=== PATIENT | male | born 1965 | race Caucasian/White ===

== ENCOUNTER 2023-05-11 01:20 | Inpatient (IN) | payer MEDICAID ==
[~2023-05-11] VITALS: Ht 177.8 cm; Wt 100.0 kg
[2023-05-11 02:46] LABS: BASOPHILS # (AUTO) 0.1 X10'3 (0-0.2); EOSINOPHILS # (AUTO) 0.2 X10'3 (0-0.9); EOSINOPHILS % (AUTO) 3.4 % (0-6); HEMATOCRIT 52.3 % (42.0-52.0); HEMOGLOBIN 17.7 g/dl (14.0-17.9); LYMPHOCYTES # (AUTO) 1.8 X10'3 (1.1-4.8); LYMPHOCYTES % (AUTO) 30.4 % (21-51); MEAN CORPUSCULAR HEMOGLOBIN 27.2 PG (27.0-31.0); MEAN CORPUSCULAR HGB CONC 33.8 g/dL (33.0-36.5); MEAN CORPUSCULAR VOLUME 80.5 FL (78-98); MEAN PLATELET VOLUME 8.8 FL (7.4-10.4); MONOCYTES # (AUTO) 0.6 X10'3 (0-0.9); MONOCYTES % (AUTO) 9.8 % (2-12); NEUTROPHILS # (AUTO) 3.3 X10'3 (1.8-7.7); NEUTROPHILS % (AUTO) 55.4 % (42-75); PLATELET COUNT 265 X10'3 (140-440); RED CELL DISTRIBUTION WIDTH 13.5 % (11.5-14.5)
[2023-05-11 03:19] LABS: ALANINE AMINOTRANSFERASE 29 U/L (12-78); ALBUMIN 3.5 G/DL (3.4-5.0); ALKALINE PHOSPHATASE 162 IU/L (46-116); ANION GAP 9 (8-16); ASPARTATE AMINO TRANSFERASE 20 U/L (10-37); BILIRUBIN,TOTAL 0.7 MG/DL (0.1-1.0); BLOOD UREA NITROGEN 22 MG/DL (7-18); BUN/CREATININE RATIO 18.2 (10.0-20.0); C-REACTIVE PROTEIN 0.11 MG/DL (0.0-0.5); CALCIUM 8.6 MG/DL (8.5-10.1); CHLORIDE 101 MMOL/L (99-107); CREATININE 1.21 MG/DL (0.60-1.10); GLUCOSE 364 MG/DL (70-104); SODIUM 140 MMOL/L (135-145); TOTAL CARBON DIOXIDE 30.5 MMOL/L (24-32); TOTAL PROTEIN 6.9 G/DL (6.4-8.2); eCRCL 70 ML/MIN; eGFR 62 ML/MIN
[2023-05-11] MEDS: morphine 4 MG/ML inj SYRINge IV ONE (03:23)
[2023-05-11] MEDS: ondansetron/PF 4mg/2ml inj IV ONE (03:23)
[2023-05-11] MEDS: normal saline 1000ml 1,000 ML IV ONE (03:23)
[2023-05-11] MEDS: cefepime 2g/NS 100ml ADVANTAGE 100 ML IV ONE (03:32)
[2023-05-11] MEDS: VANCOMYCIN 1,500MG inj. 1,500 MG in normal saline 500ml IV soln 300 ML IV SCH (04:43)
[2023-05-11] MEDS ORDERED: HYDROcodone/acetaminophen 5mg/325mg tablet PO PRN (05:30)
[2023-05-11] MEDS ORDERED: potassium Cl 20 mEq SR tablet PO PRN ×2 (05:30)
[2023-05-11] MEDS: insulin Lispro (HumaLOG) vial - multi-dose SQ ONE (05:30)
[2023-05-11] MEDS: MESSAGE TO PHARMACY PO ONE (05:30)
[2023-05-11] MEDS ORDERED: magnesium 2GM in 50ml NS 50 ML IV PRN (05:30)
[2023-05-11] MEDS ORDERED: mag hydrox/Alum hydrox/simeth 30ml oral suspension PO PRN (05:30)
[2023-05-11] MEDS ORDERED: glucagon, human recombinant 1mg kit SUBCUT PRN (05:30)
[2023-05-11] MEDS ORDERED: ondansetron/PF 4mg/2ml inj IV PRN (05:30)
[2023-05-11] MEDS ORDERED: magnesium Cl slow-release 64mg tablet PO PRN (05:30)
[2023-05-11] MEDS ORDERED: magnesium 4gm in 100ml NS 100 ML IV PRN (05:30)
[2023-05-11] MEDS ORDERED: magnesium hydroxide 30ml (MOM) UD suspension PO PRN (05:30)
[2023-05-11] MEDS ORDERED: dextrose 50%-water 50ml dispensing syringe IV PRN (05:30)
[2023-05-11] MEDS ORDERED: DEXTROSE 15 GM of carb/4 tabs (each vial/BOTTLE has 4 tablets) PO PRN ×2 (05:30)
[2023-05-11] MEDS ORDERED: acetaminophen 325mg tablet PO PRN (05:30)
[2023-05-11] MEDS ORDERED: potassium Cl 40MEQ/1/2NS 520ml 520 ML IV PRN (05:30)
[2023-05-11] MEDS: K and/or MAG REPLACEMENT MC SCH (08:00)
[2023-05-11 08:40] VITALS: BP 140/84; PULSE 94; RESP 20; TEMP 97.1; O2SAT 96
[2023-05-11 09:16] LABS: MAGNESIUM 1.8 MG/DL (1.5-2.4); POTASSIUM 4.6 MMOL/L (3.5-5.1)
[2023-05-11 10:00] VITALS: BP 140/71; PULSE 97; RESP 16; TEMP 97.7; O2SAT 98
[2023-05-11] MEDS: heparin, porcine 5000 units/ml vial SQ SCH (10:07)
[2023-05-11] MEDS: docusate sod 100mg capsule PO SCH (10:08)
[2023-05-11 11:37] LABS: HEMOGLOBIN A1C 11.7 % (4.5-6.2)
[2023-05-11] MEDS: HYDROcodone/acetaminophen 10/325mg tab PO PRN (12:59)
[2023-05-11] MEDS: insulin Lispro (HumaLOG) vial - multi-dose SQ SCH (13:13)
[2023-05-11] MEDS: vancomycin/NS 1 GM ADD-VANTAGE 250 ML IV SCH (15:19)
[2023-05-11] MEDS: piperacillin/tazo 3.375gm/50ml 50 ML IV SCH (17:39)
[2023-05-11] MEDS ORDERED: METF-438 PO (17:53)
[2023-05-11] MEDS ORDERED: ATOR10TA70 PO (17:53)
[2023-05-11] MEDS ORDERED: LISI40TA13 PO (17:53)
[2023-05-11] MEDS ORDERED: GLIP5TAB23 PO (17:55)
[2023-05-11 18:00] VITALS: BP 135/81; PULSE 79; RESP 18; TEMP 97.5; O2SAT 99
[2023-05-11] MEDS ORDERED: CefTRIAXone/D5W-Rocephin 1gm 50 ML IV SCH (21:00)
[2023-05-11 22:00] VITALS: BP 136/78; PULSE 79; RESP 16; TEMP 97.5; O2SAT 98
[2023-05-11] MEDS: insulin glargine (Lantus) pen - multi-dose SQ SCH (23:51)
[2023-05-12] VITALS (18 sets, daily range): BP systolic 131–163; BP diastolic 70–101; PULSE 75–98; RESP 11–19; TEMP 97–98; O2SAT 93–99
[2023-05-12 07:41] LABS: BASOPHILS % (AUTO) 0.6 % (0-1); EOSINOPHILS # (AUTO) 0.3 X10'3 (0-0.9); EOSINOPHILS % (AUTO) 4.3 % (0-6); HEMATOCRIT 46.6 % (42.0-52.0); HEMOGLOBIN 15.8 g/dl (14.0-17.9); LYMPHOCYTES # (AUTO) 1.3 X10'3 (1.1-4.8); LYMPHOCYTES % (AUTO) 22.6 % (21-51); MEAN CORPUSCULAR HEMOGLOBIN 27.3 PG (27.0-31.0); MEAN CORPUSCULAR HGB CONC 33.9 g/dL (33.0-36.5); MEAN CORPUSCULAR VOLUME 80.5 FL (78-98); MEAN PLATELET VOLUME 8.5 FL (7.4-10.4); MONOCYTES # (AUTO) 0.5 X10'3 (0-0.9); MONOCYTES % (AUTO) 9.3 % (2-12); NEUTROPHILS # (AUTO) 3.7 X10'3 (1.8-7.7); NEUTROPHILS % (AUTO) 63.2 % (42-75); PLATELET COUNT 219 X10'3 (140-440); RED BLOOD COUNT 5.79 X10'6 (4.70-6.10); RED CELL DISTRIBUTION WIDTH 13.6 % (11.5-14.5); WHITE BLOOD COUNT 5.8 X10'3 (4.5-11.0)
[2023-05-12 08:01] LABS: ALANINE AMINOTRANSFERASE 18 U/L (12-78); ALBUMIN 2.7 G/DL (3.4-5.0); ALKALINE PHOSPHATASE 85 IU/L (46-116); ANION GAP 9 (8-16); ASPARTATE AMINO TRANSFERASE 19 U/L (10-37); BILIRUBIN,TOTAL 0.9 MG/DL (0.1-1.0); BLOOD UREA NITROGEN 17 MG/DL (7-18); CALCIUM 8.2 MG/DL (8.5-10.1); CHLORIDE 105 MMOL/L (99-107); CHOL/HDL RATIO 4.2 (0.00-4.99); CHOLESTEROL 171 MG/DL (0-200); GLUCOSE 173 MG/DL (70-104); HDL CHOLESTEROL 41 MG/DL (35-60); LDL CHOLESTEROL 110 MG/DL (50-100); MAGNESIUM 1.6 MG/DL (1.5-2.4); POTASSIUM 4.2 MMOL/L (3.5-5.1); SODIUM 140 MMOL/L (135-145); TOTAL CARBON DIOXIDE 26.3 MMOL/L (24-32); TOTAL PROTEIN 5.5 G/DL (6.4-8.2); TRIGLYCERIDES 105 MG/DL (20-135); eCRCL 84 ML/MIN; eGFR 77 ML/MIN
[2023-05-12] MEDS ORDERED: proCHLORperazine 10 MG/2 ml inj IV PRN (11:25)
[2023-05-12] MEDS ORDERED: meperidine/PF 25mg/ml syringe IV PRN ×3 (11:25)
[2023-05-12] MEDS ORDERED: morphine 4 MG/ML inj SYRINge IV PRN (11:25)
[2023-05-12] MEDS ORDERED: labetalol 20mg/4ml (5mg/ml) syringe IV PRN (11:25)
[2023-05-12] MEDS ORDERED: enalaprilat dihydrate 2.5mg/2ml vial IV PRN (11:25)
[2023-05-12] MEDS ORDERED: morphine 2 MG/ML inj. syringe IV PRN (11:25)
[2023-05-12] MEDS ORDERED: ringers solution, lacted 1,000 ML IV SCH (11:25)
[2023-05-12] MEDS ORDERED: glycopyrrolate 0.2mg/ml inj ONE (12:52)
[2023-05-12] MEDS ORDERED: neostigmine methylsulfate 1 MG/ML 10ml vial ONE (12:52)
[2023-05-12] MEDS ORDERED: dexamethasone sod phosphate 10mg/ml inj ONE (12:52)
[2023-05-12] MEDS ORDERED: sevoflurane 250ml liquid IH ONE (12:52)
[2023-05-12] MEDS ORDERED: fentaNYL/PF 50MCG/1 ML 2ML syringe ONE (13:03)
[2023-05-12] MEDS ORDERED: midazolam 1 mg/ML 2ml injection ONE (13:03)
[2023-05-12] MEDS ORDERED: ROPIVAcaine 0.5% (5mg/ml) 30ml vial ONE (13:05)
[2023-05-12] MEDS ORDERED: LIDOcaine 2% (20mg/ml) 5ml vial ONE (13:05)
[2023-05-12] MEDS ORDERED: propofol inj 20 ML IV ONE (13:05)
[2023-05-12] MEDS: vancomycin 1,000mg inj ONE (13:33)
[2023-05-12] MEDS ORDERED: ondansetron/PF 4mg/2ml inj ONE (13:35)
[2023-05-12] MEDS: ondansetron/PF 4mg/2ml inj IV PRN (14:09)
[2023-05-12] MEDS: VANCOMYCIN LEVEL IV ONE (16:56)
[2023-05-12] MEDS: metFORMIN 500mg tablet PO SCH (20:49)
[2023-05-12] MEDS: atorvastatin 10mg tablet PO SCH (20:49)
[2023-05-12] MEDS ORDERED: insulin glargine (Lantus) pen - multi-dose SQ SCH (21:00)
[2023-05-13] VITALS (8 sets, daily range): BP systolic 116–156; BP diastolic 58–86; PULSE 77–92; RESP 14–18; TEMP 97.6–98.7; O2SAT 92–99
[2023-05-13 07:59] LABS: BASOPHILS % (AUTO) 0.2 % (0-1); EOSINOPHILS % (AUTO) 0 % (0-6); HEMATOCRIT 46.9 % (42.0-52.0); HEMOGLOBIN 15.7 g/dl (14.0-17.9); LYMPHOCYTES # (AUTO) 0.7 X10'3 (1.1-4.8); LYMPHOCYTES % (AUTO) 6.2 % (21-51); MEAN CORPUSCULAR HGB CONC 33.5 g/dL (33.0-36.5); MEAN CORPUSCULAR VOLUME 80.7 FL (78-98); MEAN PLATELET VOLUME 8.7 FL (7.4-10.4); MONOCYTES # (AUTO) 0.6 X10'3 (0-0.9); MONOCYTES % (AUTO) 5.2 % (2-12); NEUTROPHILS # (AUTO) 10.6 X10'3 (1.8-7.7); NEUTROPHILS % (AUTO) 88.4 % (42-75); PLATELET COUNT 248 X10'3 (140-440); RED BLOOD COUNT 5.81 X10'6 (4.70-6.10); RED CELL DISTRIBUTION WIDTH 13.1 % (11.5-14.5)
[2023-05-13] MEDS ORDERED: glipizide 5mg tablet PO SCH (08:00)
[2023-05-13 08:23] LABS: ALANINE AMINOTRANSFERASE 16 U/L (12-78); ALBUMIN 2.6 G/DL (3.4-5.0); ALBUMIN/GLOBULIN RATIO 0.9 (1.1-1.5); ALKALINE PHOSPHATASE 93 IU/L (46-116); ANION GAP 9 (8-16); ASPARTATE AMINO TRANSFERASE 14 U/L (10-37); BILIRUBIN,TOTAL 0.5 MG/DL (0.1-1.0); BLOOD UREA NITROGEN 22 MG/DL (7-18); BUN/CREATININE RATIO 18.5 (10.0-20.0); CALCIUM 8.1 MG/DL (8.5-10.1); CHLORIDE 102 MMOL/L (99-107); CREATININE 1.19 MG/DL (0.60-1.10); GLUCOSE 275 MG/DL (70-104); MAGNESIUM 1.8 MG/DL (1.5-2.4); POTASSIUM 4.3 MMOL/L (3.5-5.1); SODIUM 135 MMOL/L (135-145); TOTAL CARBON DIOXIDE 24.2 MMOL/L (24-32); TOTAL PROTEIN 5.5 G/DL (6.4-8.2); eCRCL 71 ML/MIN; eGFR 63 ML/MIN
[2023-05-13] MEDS: lisinopril 20mg tablet PO SCH (08:58)
[2023-05-13 10:45] LABS: C-REACTIVE PROTEIN 0.35 MG/DL (0.0-0.5)
[2023-05-13] MEDS ORDERED: LANTUS SQ (11:52)
[2023-05-13] MEDS ORDERED: DOXY-243 PO (11:52)
[2023-05-13] MEDS ORDERED: NEED-137 SUBCUT (11:57)
[2023-05-13 12:02] LABS: BASOPHILS % (AUTO) 0.2 % (0-1); EOSINOPHILS # (AUTO) 0.1 X10'3 (0-0.9); EOSINOPHILS % (AUTO) 0.4 % (0-6); HEMATOCRIT 44.2 % (42.0-52.0); HEMOGLOBIN 14.9 g/dl (14.0-17.9); LYMPHOCYTES # (AUTO) 1.2 X10'3 (1.1-4.8); LYMPHOCYTES % (AUTO) 9.4 % (21-51); MEAN CORPUSCULAR HEMOGLOBIN 27.2 PG (27.0-31.0); MEAN CORPUSCULAR HGB CONC 33.7 g/dL (33.0-36.5); MEAN CORPUSCULAR VOLUME 80.6 FL (78-98); MEAN PLATELET VOLUME 8.4 FL (7.4-10.4); MONOCYTES # (AUTO) 0.7 X10'3 (0-0.9); MONOCYTES % (AUTO) 5.6 % (2-12); NEUTROPHILS # (AUTO) 11.2 X10'3 (1.8-7.7); NEUTROPHILS % (AUTO) 84.4 % (42-75); PLATELET COUNT 237 X10'3 (140-440); RED BLOOD COUNT 5.48 X10'6 (4.70-6.10); RED CELL DISTRIBUTION WIDTH 13.3 % (11.5-14.5); WHITE BLOOD COUNT 13.2 X10'3 (4.5-11.0)
[2023-05-13] MEDS: VANCOmycin 1250MG/NS 250ml Bag 250 ML IV SCH (15:59)
[2023-05-13] MEDS: dextrose 50%-water 50ml dispensing syringe IV PRN (17:20)
[2023-05-13] MEDS: normal saline 1000ml 1,000 ML IV SCH (19:11)
[2023-05-14 00:07] VITALS: RESP 18; O2SAT 99
[2023-05-14 06:00] VITALS: BP 148/80; PULSE 80; RESP 18; TEMP 97.6; O2SAT 98
[2023-05-14 06:55] LABS: BASOPHILS # (AUTO) 0.1 X10'3 (0-0.2); EOSINOPHILS # (AUTO) 0.2 X10'3 (0-0.9); MEAN CORPUSCULAR HEMOGLOBIN 27.6 PG (27.0-31.0); MEAN CORPUSCULAR HGB CONC 33.9 g/dL (33.0-36.5); MEAN CORPUSCULAR VOLUME 81.6 FL (78-98); RED CELL DISTRIBUTION WIDTH 13.3 % (11.5-14.5); WHITE BLOOD COUNT 8.2 X10'3 (4.5-11.0)
[2023-05-14 07:16] LABS: ALANINE AMINOTRANSFERASE 17 U/L (12-78); ALBUMIN 2.4 G/DL (3.4-5.0); ALBUMIN/GLOBULIN RATIO 0.9 (1.1-1.5); ALKALINE PHOSPHATASE 72 IU/L (46-116); ANION GAP 5 (8-16); ASPARTATE AMINO TRANSFERASE 16 U/L (10-37); BILIRUBIN,TOTAL 0.4 MG/DL (0.1-1.0); BLOOD UREA NITROGEN 16 MG/DL (7-18); BUN/CREATININE RATIO 16.2 (10.0-20.0); CALCIUM 7.9 MG/DL (8.5-10.1); CHLORIDE 108 MMOL/L (99-107); CREATININE 0.99 MG/DL (0.60-1.10); GLUCOSE 119 MG/DL (70-104); MAGNESIUM 1.5 MG/DL (1.5-2.4); POTASSIUM 4.1 MMOL/L (3.5-5.1); SODIUM 141 MMOL/L (135-145); TOTAL CARBON DIOXIDE 27.7 MMOL/L (24-32); TOTAL PROTEIN 5.2 G/DL (6.4-8.2); eCRCL 85 ML/MIN; eGFR 78 ML/MIN
[2023-05-14 07:46] LABS: BASOPHILS % (AUTO) 0.8 % (0-1); HEMATOCRIT 43.8 % (42.0-52.0); HEMOGLOBIN 14.8 g/dl (14.0-17.9); LYMPHOCYTES % (AUTO) 24.7 % (21-51); MEAN PLATELET VOLUME 8.7 FL (7.4-10.4); MONOCYTES # (AUTO) 0.5 X10'3 (0-0.9); MONOCYTES % (AUTO) 5.9 % (2-12); NEUTROPHILS # (AUTO) 5.5 X10'3 (1.8-7.7); NEUTROPHILS % (AUTO) 66.6 % (42-75); PLATELET COUNT 202 X10'3 (140-440); RED BLOOD COUNT 5.36 X10'6 (4.70-6.10)
[2023-05-14 08:00] VITALS: RESP 18; O2SAT 98
[2023-05-14 10:00] VITALS: BP 122/72; PULSE 78; RESP 16; TEMP 98.5; O2SAT 97
[2023-05-15] MEDS ORDERED: VANCOMYCIN LEVEL IV ONE (03:30)
== END 2023-05-14 12:37 | disposition home or self-care (01) | DRG 314 ==
LOC: ER 01:20 → ED HOLD 05:28 → ORTHO 4S 08:14 → PACU 05-12 13:57 → ORTHO 4S 05-12 15:48
PROVIDERS: ADMIT Internal Medicine; ATTEND Internal Medicine
PROC: 3E0T3BZ Introduction of Anesthetic Agent into Peripheral Nerves and Plexi, Percutaneous Approach (ICD-10-PCS; 2023-05-12)
PROC: 3E0T33Z Introduction of Anti-inflammatory into Peripheral Nerves and Plexi, Percutaneous Approach (ICD-10-PCS; 2023-05-12)
PROC: 0Y6Q0Z0 Detachment at Left 1st Toe, Complete, Open Approach (ICD-10-PCS; principal; 2023-05-12 12:52)
DX: E11.69 Type 2 diabetes mellitus with other specified complication (principal); M86.8X7 Other osteomyelitis, ankle and foot; E11.40 Type 2 diabetes mellitus with diabetic neuropathy, unspecified; I10 Essential (primary) hypertension; E78.5 Hyperlipidemia, unspecified; E11.65 Type 2 diabetes mellitus with hyperglycemia; S91.102A Unspecified open wound of left great toe without damage to nail, initial encounter; X58.XXXA Exposure to other specified factors, initial encounter; Y93.89 Activity, other specified; Y92.89 Other specified places as the place of occurrence of the external cause; Y99.8 Other external cause status
CPT/HCPCS: 36415; 71045; 73630; 73718; 80053; 80061; 80202; 82948; 83036; 83605; 83735; 84132; 84145; 85025; 85651; 86140; 87040; 87070; 87075; 87081; 93005; 93922; 93925; 96374; 96375; 99285; A4618; A6223; A6446; A6449; A7000; G0378; J0692; J1100; J1644; J1815; J2250; J2270; J2405; J2543; J2704; J2710; J2795; J3010; J3370; J3490; J7030; J7040; J7120